=== PATIENT | male | born 1970 | race Caucasian/White ===

== ENCOUNTER → 2019-01-10 | Outpatient (CLI) | payer OTHER ==
--- NOTE | 2019-01-10 15:46 | US ---
EXAMINATION TYPE: US scrotum with doppler. Grayscale and color Doppler Duplex imaging performed of t he scrotum. DATE OF EXAM: 01/10/2019 COMPARISON: NONE CLINICAL HISTORY: N50.8specified disorders of male genital. Pt states palpable lump left testicle x 9 years, recent pain to left testicle EXAM MEASUREMENTS: TESTICLES: Right Testicle: 3.1 x 1.7 x 2.9 cm Left Testicle: 3.0 x 1.8 x 2.8 cm EPIDIDYMIS HEAD: Right Epididymis: 1.4 cm Left Epididymis: 3.0 cm Doppler performed to assess for testicular vascularity; color flow, vascular waveforms are noted bila terally Presence of hydroceles: No Presence of varicoceles: No Small right epididymal head cyst= 0.8 x 0.7 x 0.9 cm Two left epididymal head cysts at pt's palpable 1)= 1.7 x 1.0 x 1.5 cm 2)= 1.8 x 1.1 x 1.5 cm Testicular echotexture is homogenous and symmetric IMPRESSION: Epididymal cysts are present bilaterally.
== END | disposition home or self-care (01) ==
LOC: RADUSWWP 14:06
PROVIDERS: ATTEND Family Medicine
DX: N50.3 Cyst of epididymis (principal)
CPT/HCPCS: 76870; 93975

== ENCOUNTER → 2019-02-12 | Outpatient (CLI) | payer OTHER ==
--- NOTE | 2019-02-12 20:28 | MR ---
EXAMINATION TYPE: MR lumbar spine wo con DATE OF EXAM: 02/12/2019 COMPARISON: None HISTORY: Radiculopathy /Lumbago with sciatica CONTRAST: 0 mL intravenous Gadavist. TECHNIQUE: Multiplanar, multisequence images of the lumbar spine were acquired. FINDINGS: L5-S1: Mild broad-based disc bulge is present. This has contact with the exiting nerve roots bilatera lly. No AP spinal canal stenosis is present. L4-L5: Broad-based disc bulge is present with mild anterior thecal sac flattening. No AP spinal canal stenosis is present. Neural foramen are patent. Note is made of anterior disc herniation at this lev el. L3-L4: No spinal canal stenosis is present. No neural foraminal stenosis present. Mild facet hypertro phy and ligamentum flavum laxity is present. No focal disc herniations or significant disc bulges are evident. L2-L3: Broad-based disc bulge is present. Large disc herniation is in the left lateral direction comp letely filling the neural foramen. Correlate with nerve root impingement through this left L2-3 liu en. Right foramen is patent. Consider additional evaluation with postcontrast MRI to evaluate for seq uestered disc. L1-L2: No significant disc bulge or disc herniation. No spinal canal stenosis. No foraminal stenosi s. T12-L1: No significant disc bulge or disc herniation. No spinal canal stenosis. No foraminal stenos is. IMPRESSION: 1. Large disc herniation left lateral direction and L2-3 with severe left L3 nerve root impingement w ithin the foramen. Correlate with radicular symptoms. 2. Broad-based disc bulging L4-5 L5-S1 without spinal canal stenosis.
== END | disposition home or self-care (01) ==
LOC: RADMRIMAIN 17:52
PROVIDERS: ATTEND Family Medicine
DX: M51.16 Intervertebral disc disorders with radiculopathy, lumbar region (principal); M51.17 Intervertebral disc disorders with radiculopathy, lumbosacral region
CPT/HCPCS: 72148

== ENCOUNTER → 2024-03-20 | Outpatient (CLI) | payer BC ==
--- NOTE | 2024-03-21 08:29 | MR ---
EXAMINATION TYPE: MR shoulder RT wo con DATE OF EXAM: 03/20/2024 COMPARISON: None HISTORY: Rt shoulder pain into Rt arm/fingers x3 months TECHNIQUE: Multiplanar, multisequence imaging of the right shoulder is performed without contrast. FINDINGS: Rotator Cuff: Intact supraspinatus and infraspinatus tendons. Heterogeneous subscapularis tendon. Acromioclavicular Joint: Moderate to severe narrowing and capsular hypertrophy with subchondral cysti c change and [id number] spurring. Loss of underlying fat plane noted. Glenohumeral Joint: Small joint effusion. No significant spurring. Labrum: The labrum appears grossly intact given limitation of non-arthrogram study. Biceps Tendon: The long head of biceps is in normal location within bicipital groove. Some surroundin g fluid is present. Bone marrow signal: No focal abnormal marrow signal is appreciated. Other: No additional significant abnormality is appreciated. IMPRESSION: 1. Moderate to severe AC joint arthropathy with suggestion of underlying impingement. Correlate clini sagar. No significant rotator cuff or labral tear. 2. Mild bicipital tenosynovitis.
--- NOTE | 2024-03-21 17:43 | MR ---
EXAMINATION TYPE: MR cervical spine wo con DATE OF EXAM: 03/20/2024 6:54 PM CLINICAL INDICATION:Male, 53 years old with history of [id number], [id number]; PHH, Neck pain into Right arm /fingers x3 months COMPARISON: None. TECHNIQUE: Multi planar, multi sequence imaging was performed utilizing: T1-weighted, T2-weighted, an d turbo inversion recovery imaging of the cervical spine. IV Contrast: cc (none if empty) FINDINGS: Alignment: The cervical vertebral bodies have preserved heights. Alignment is within normal limits gi rosa patient positioning. Bones: Bone signal is within normal limits. No abnormal bone marrow edema on inversion recovery seque nces. Cord: The spinal cord is unremarkable with regards to their signal intensity and morphology. Discs: Intervertebral disc signal is maintained. C2-C3: No significant disc pathology. The spinal canal is patent. No neural foraminal stenosis. C3-C4: No significant disc pathology. The spinal canal is patent. No neural foraminal stenosis. C4-C5: No significant disc pathology. The spinal canal is patent. No neural foraminal stenosis. C5-C6: No significant disc pathology. The spinal canal is patent. Bilateral facet and uncovertebral joint arthropathy are present with moderate right and mild left neural foraminal stenosis. C6-C7: No significant disc pathology. The spinal canal is patent. No neural foraminal stenosis. C7-T1: No significant disc pathology. The spinal canal is patent. No neural foraminal stenosis. Other: None. IMPRESSION: 1. No evidence for disc herniation or significant spinal canal stenosis. 2. Mild disc degeneration with associated osteoarthritic changes. No from stenosis worse with Moderat e right C5-C6 neural foraminal stenosis.
== END | disposition home or self-care (01) ==
LOC: RADMRIMAIN 17:51
PROVIDERS: ATTEND Family Medicine
DX: M19.011 Primary osteoarthritis, right shoulder (principal); S16.1XXA Strain of muscle, fascia and tendon at neck level, initial encounter; M65.811 Other synovitis and tenosynovitis, right shoulder; M99.71 Connective tissue and disc stenosis of intervertebral foramina of cervical region; M50.30 Other cervical disc degeneration, unspecified cervical region; M47.812 Spondylosis without myelopathy or radiculopathy, cervical region; X58.XXXA Exposure to other specified factors, initial encounter
CPT/HCPCS: 72141

== ENCOUNTER → 2024-12-27 | Outpatient (CLI) | payer BC ==
--- NOTE | 2024-12-27 17:33 | CA ---
Exercise Stress Test Report Name: Mendoza Su Exam Date: 12/27/2024 11:14 Exam Location: [place] Stress Ht (in): 76 Wt (lb): 180 BSA: 2.12 Ordering Phys: Hoa Lord DO Referring Phys: Dina Washington PAC Technologist: SONIA UREÑA Age: 54 Gender: M : 1970 Procedure CPT: Indications: R94.13 ABN EKG ICD-10 Codes: Patient History: Medications: NEXIUM,,, Meds past 24 hrs: Pretest Chest Pain: STRESS TEST Jose Protocol Exercise Duration (min:sec): 09:[address] Depressions (mm): Angina Score: Lester Score: Resting HR (bpm): 85 Peak HR (bpm): 160 Resting BP (mmHg): 116 / 85 Peak BP (mmHg): 169 / 67 MPHR: 167 Target HR: 142 % MPHR: 96 METS: 10.3 Total Dose: Peak Dose: Atropine: Double Product: 92203 BP Response: Stress Termination: TARGET HR REACHED/MAX EXERTION Stress Symptoms: NO SYMPTOMS Stress Summary: ECG ANALYSIS Resting ECG: Stress ECG: CONCLUSIONS Baseline EKG revealed normal sinus rhythm without significant ST and T wave changes. Patient walked on a standard Jose protocol for 9 minutes and achieved a maximal heart rate of 160 bpm which is well above 85% of predicted maximal. No angina no arrhythmia no EKG changes to indicate ischemia. This is a negative stress test with fair exercise capacity Dr. Carolyn Lopez MD (Electronically Signed) Final Date: 27 Dec 2024 17:33
== END | disposition home or self-care (01) ==
LOC: RADNMMAIN 10:15
PROVIDERS: ATTEND Family Medicine
DX: R94.31 Abnormal electrocardiogram [ECG] [EKG] (principal); R00.1 Bradycardia, unspecified
CPT/HCPCS: 93017